=== PATIENT | male | born 1930 | race Caucasian/White ===

== ENCOUNTER 2017-01-22 20:26 | Inpatient (IN) | payer MEDICARE, OTHER ==
[2017-01-22] MEDS ORDERED: NORMAL SALINE 1000 ML 1,000 ML IV ONE (20:47)
[2017-01-22] MEDS ORDERED: LEVOFLOXACIN 750 MG/D5W RTU 150 ML IV ONE (20:48)
[2017-01-22] MEDS ORDERED: PIPERACILLIN/TAZOBACTAM 3.375 GM VIAL IV ONE (20:48)
[2017-01-22] MEDS ORDERED: VANCOMYCIN HCL INJ 1000 MG VIAL IV ONE (20:48)
--- NOTE | 2017-01-22 20:54 | ER Document Report ---
ED General - General Stated Complaint: ALTERED MENTAL STATUS Cannot obtain history due to: Dementia Notes: Patient presents from his nursing facility with altered mental status and hypoxemia. Patient is nonverbal, does not provide any history. Staff facility apparently stated that he was noted be hypoxemic on routine vitals and that he normally at least states his name. No additional history can be obtained secondary to patient's severe dementia and limited history from the nursing facility TRAVEL OUTSIDE OF THE [place] IN LAST 30 DAYS: No - Related Data Allergies/Adverse Reactions: No Known Allergies Allergy (Verified 10/15/16 14:10) Past Medical History - General Information source: Emergency Med Personnel Cannot obtain history due to: Dementia - Social History Smoking Status: Unknown if Ever Smoked Lives with: Intermediate Family History: Reviewed & Not Pertinent - Past Medical History Cardiac Medical History: Reports: Hx Hypercholesterolemia, Hx Hypertension Endocrine Medical History: Reports: Hx Diabetes Mellitus Type 1, Hx Diabetes Mellitus Type 2 Renal/ Medical History: Reports: Hx Benign Prostatic Hyperplasia Psychiatric Medical History: Reports: Hx Dementia Past Surgical History: Reports: Hx Orthopedic Surgery - right hip - Immunizations Hx Diphtheria, Pertussis, Tetanus Vaccination: No Review of Systems - Review of Systems -: Yes ROS unobtainable due to patient's medical condition Physical Exam - Vital signs Vitals: Resp Pulse Ox 26 H 97 01/22/17 20:50 01/22/17 20:50 Interpretation: Tachycardic, Hypoxic, Tachypneic Notes: PHYSICAL EXAMINATION: GENERAL: Cachectic, frail, ill-appearing elderly man HEAD: Atraumatic, normocephalic. EYES: Pupils equal round and reactive to light, sclera anicteric, conjunctiva are normal. ENT: nares patent, oropharynx clear without exudates. Dry mucous membranes. NECK: supple without lymphadenopathy LUNGS: Scattered rales in all lung bennett of the bilateral lungs. Mild tachypnea with respiratory rate 24. HEART: Regular tachycardia without murmurs ABDOMEN: Soft,, normoactive bowel sounds. No guarding, no rebound. No masses appreciated. EXTREMITIES: Pill roll tremor of the bilateral upper extremities. Patient is in the position and will not follow range of motion testing. No deformity of the extremities NEUROLOGICAL: Patient does move all extremities spontaneously. He does not follow commands PSYCH: Nonverbal SKIN: Warm, Dry, poor turgor, diffuse bruising over the bilateral upper extremities Course - Re-evaluation Re-evalutation: 01/22/17 20:54 Patient presents with hypoxemia and worsened altered mental status relative to his baseline. He is completely nonverbal at this point. He does protect his airway. Initial laboratories do show tachycardia with initial heart rate of 110. Patient is hypoxemic to as low as 83% on room air with a good Plath using a forehead pulse oximeter at time of my initial assessment. Patient does maintain oxygen saturations between 93 and 94% on 3.5 L by nasal cannula. Initial evaluation shows scattered rales in all lung bennett. Clinical history and evaluation at this time is most consistent with likely pneumonia, less likely CHF with pulmonary edema given the absence of significant hypertension or any evidence of volume overload on the remainder of exam. Indeed patient actually appears volume depleted from initial evaluation and has no known history of CHF. Labs, chest x-ray, begin antibiotics for a healthcare associated pneumonia and reassess 01/22/17 23:01 Chest x-ray is consistent with right lower lobe pneumonia which is clinically consistent with patient's presentation. He has become more alert although continues to be nonverbal after receiving oxygen supplementation. The remainder his laboratories are overall unremarkable. I discussed this case with the hospitalist secondary education professor Dr. Fleming who will admit. - Vital Signs Vital signs: Temp Pulse Resp BP Pulse Ox 19 170/84 H 100 01/22/17 22:02 01/22/17 22:02 01/22/17 22:02 - Laboratory Result Diagrams: 01/22/17 21:25 01/22/17 21:25 Laboratory results interpreted by me: 01/22/17 01/22/17 01/22/17 21:25 21:25 21:25 RBC 3.54 L Hgb 11.3 L Hct 33.4 L RDW 14.8 H Lymphocytes % 7.6 L Monocytes % 14.3 H VBG pH 7.47 H VBG pCO2 33.1 L Sodium 147.1 H Chloride 108 H BUN 33 H Total Protein 6.0 L Albumin 3.0 L - Diagnostic Test Radiology reviewed: Image reviewed, Reports reviewed Radiology results interpreted by me: 01/22/17 23:02 Chest x-ray: Right lower lobe pneumonia - EKG Interpretation by Me Additional EKG results interpreted by me: 01/22/17 23:[address] elevations or depressions. Qtc 422. Discharge - Discharge Clinical Impression: Right lower lobe pneumonia Qualifiers: Pneumonia type: due to unspecified organism Qualified Code(s): J18.1 - Lobar pneumonia, unspecified organism Sepsis Qualifiers: Sepsis type: sepsis due to unspecified organism Qualified Code(s): A41.9 - Sepsis, unspecified organism Condition: Fair Disposition: ADMITTED INPATIENT [facility] Admitted: Telemetry
[2017-01-22 21:39] LABS: ABSOLUTE LYMPHOCYTES (AUTO) 0.6 10^3/uL (0.5-4.7); ABSOLUTE MONOCYTES (AUTO) 1.1 10^3/uL (0.1-1.4); ABSOLUTE NEUT (AUTO) 6.1 10^3/uL (1.7-8.2); BASOPHILS % (AUTO) 0.2 % (0-2); HEMATOCRIT 33.4 % (37.9-51.0); HEMOGLOBIN 11.3 g/dL (13.5-17.0); HGB HCT DIFFERENCE 0.5; LYMPHOCYTES % (AUTO) 7.6 % (13-45); MEAN CORPUSCULAR HEMOGLOBIN 31.9 pg (27.0-33.4); MEAN CORPUSCULAR HGB CONC 33.8 g/dL (32.0-36.0); MEAN CORPUSCULAR VOLUME 94 fl (80-97); MONOCYTES % (AUTO) 14.3 % (3-13); RED BLOOD COUNT 3.54 10^6/uL (4.35-5.55); RED CELL DISTRIBUTION WIDTH 14.8 % (11.5-14.0); SEGMENTED NEUTROPHILS % (AUTO) 77.9 % (42-78); VENOUS BLOOD BASE EXCESS 0.4 mmol/L; VENOUS BLOOD HCO3 23.8 mmol/L (20-32); VENOUS BLOOD PCO2 33.1 mmHg (35-63); VENOUS BLOOD PH 7.47 (7.30-7.42); WHITE BLOOD COUNT 7.8 10^3/uL (4.0-10.5)
[2017-01-22 21:59] LABS: ALANINE AMINOTRANSFERASE 31 U/L (21-72); ALKALINE PHOSPHATASE 103 U/L (38-126); ANION GAP 15 (5-19); ASPARTATE AMINO TRANSFERASE 24 U/L (17-59); BILIRUBIN,DIRECT 0.3 mg/dL (0.0-0.4); BILIRUBIN,TOTAL 0.9 mg/dL (0.2-1.3); BLOOD UREA NITROGEN 33 mg/dL (7-20); CALCIUM 9.3 mg/dL (8.4-10.2); CARBON DIOXIDE 24 mmol/L (22-30); CHLORIDE 108 mmol/L (98-107); CREATININE RESULT 1.02 mg/dL (0.52-1.25); GLUCOSE 110 mg/dL (75-110); POTASSIUM 3.7 mmol/L (3.6-5.0); SODIUM 147.1 mmol/L (137-145)
[2017-01-23] MEDS ORDERED: GLUCAGON,HUMAN RECOMB 1 MG INJ IM PRN (02:11)
[2017-01-23] MEDS ORDERED: DEXTROSE 50%-WATER 25 GM/50 ML DISP.SYRIN IV PRN ×2 (02:11)
[2017-01-23] MEDS ORDERED: INSULIN LISPRO 100 UNIT/ML 3 ML VIAL SUBCUT PRN (02:11)
[2017-01-23] MEDS ORDERED: DEXTROSE 40% GEL 15 GM TUBE PO PRN ×2 (02:11)
[2017-01-23] MEDS ORDERED: IPRATROPIUM/ALBUTEROL 0.5-2.5 MG/3 ML AMPUL NEB PRN (02:13)
[2017-01-23] MEDS ORDERED: ACETAMINOPHEN 650 MG SUPP.RECT PR PRN ×2 (02:19→11:59)
[2017-01-23] MEDS ORDERED: VANCOMYCIN HCL 0 MG in DEXTROSE 5%-WATER 250 ML IV NR (02:30)
--- NOTE | 2017-01-23 02:33 | PDOC H&P ---
History of Present Illness Admission Date/PCP: 01/22/17 22:58 [place], [place] Patient complains of: ams History of Present Illness: ROCIO BENOIT is a 86 year old male resident of the [facility] in [place], [place], who presents to the emergency room for evaluation of above complaint. Patient has been discussed with emergency room physician who evaluated the patient. Patient is nonverbal, making only unintelligible sounds on occasion, not interacting in a purposeful way with his surroundings, and is able to provide no history whatsoever in terms of acute or chronic events, review of systems, personal habits, family history, etc. No friends or family are present. Old inpatient records are reviewed. ER physician notes have been reviewed, revealing Patient noted to be hypoxic at the assisted, and somewhat less interactive than usual. No further information available this point in time. Hospitalized on our service May 09 of May 22 of last year, with discharge diagnoses including right hip fracture, status post repair of same, hypertension , type II diabetes mellitus, Alzheimer's dementia, and benign prostatic hypertrophy. History and physical and discharge summary have been reviewed. . Laboratory results are listed in [employer] and are reviewed. X-ray summary results are listed below, with full report(s) reviewed. . EKG reviewed. And compared to a prior tracing from May 23 of last year Social history/personal habits: See history and present illness.No further information available this point in time. Allergies/adverse reactions NKDA. Home medications Home medications initially autopopulated into [employer] may not accurately reflect patient's true medications, dosages, and/or frequencies. Unfortunately, patient not able to provide any information related to medications/dosages/frequencies. REVIEW OF SYSTEMS: See history and present illness.No further information available this point in time. PHYSICAL EXAMINATION: Neither height nor weight are documented on the chart. Blood pressure 125/69. 95% saturation on 1 L oxygen per nasal cannula. Respirations are 22 and unlabored. Pulse 72 and regular. Temperature 97.8. Thin otherwise well-developed though somewhat chronically ill-appearing elderly male appearing approximately his stated age. He is awake, looking about the room slightly, but again, does not interact purposefully with his surroundings. Pulling at his restraints slightly. Skin is warm and dry. No grossly obvious evidence of rash in areas of skin examined. No subcutaneous nodules palpated. Small stage II decubiti on each lateral malleolus, along with a similar small stage II decubitus on the mid lateral aspect of his left foot. No evidence of infection at any site. Scattered small abrasions on his lower extremities, without obvious evidence of infection. ENT: Hearing can't be adequately evaluated due to his current status. No Holland sign. Eyes: No scleral icterus. Pupils equal and reactive to light at 3 mm. [place] conjunctivae. No raccoon eyes. Neck is nontender to gentle palpation. Midline trachea. No palpable thyroid nodule mass enlargement or tenderness. Lymphatic: No palpable cervical or clavicular nodes. Neck and lymphatic exams limited by patient body habitus. Psychiatric: Not able to be adequately evaluated due to his current status. Lungs: Auscultation reveals equal breath sounds bilaterally. No use of accessory respiratory muscles. Slightly coarse breath sounds in right base; clear otherwise. Cardiovascular: Heart regular rate and rhythm, without gallop murmur or rub. No carotid or abdominal aortic bruits. No ankle or pedal edema. Faintly palpable dorsalis pedis pulses. Abdomen: soft, nontender with positive bowel sounds. No upper abdominal mass or organomegaly is palpated.. Extremities: Feet are warm and dry. No calf tenderness to compression. No grossly obvious visual evidence of calf swelling. Gentle manipulation of lower extremities fails to reveal any obvious evidence of injury or instability to knees hips or ankles. Neurologic: Moves all 4 extremities grossly normally with some restriction of movement of his upper extremities due to soft wrist restraints.. Patellar reflexes absent. Absent Babinski. Light touch can't be determined due to his current status.. Past Medical History Cardiac Medical History: Reports: Hypertension Neurological Medical History: Reports: Other - Alzheimer's dementia. Endocrine Medical History: Reports: Diabetes Mellitus Type 2 Psychiatric Medical History: Reports: Dementia Past Surgical History Past Surgical History: Reports: Orthopedic Surgery - right hip Social History Information Source: Emergency Med Personnel, [facility] Records Lives with: Alf Smoking Status: Unknown if Ever Smoked Frequency of Alcohol Use: None Drugs: None - Advance Directive Resuscitation Status: Full Code Surrogate healthcare decision maker:: Uncertain at this point in time. Family History Family History: Reviewed & Not Pertinent Parental Family History Reviewed: No - patient not able to provide any information. Children Family History Reviewed: No - patient not able to provide any information. Sibling(s) Family History Reviewed.: No - patient not able to provide any information. Medication/Allergy Home Medications: Acetaminophen [Tylenol 325 mg Tablet] 325 mg PO Q4HP PRN 01/23/17 Alendronate Sodium [Fosamax] 70 mg PO MO@1000 01/23/17 Calcium Carbonate/Vitamin D3 [Oyster Shell Calcium-Vit D Tab] 1 each PO BID 04/05 Carbidopa/Levodopa [Sinemet Cr 50-200 Tablet] 1 tab PO BID 01/23/17 Docusate Sodium [Diocto] 10 ml PO BID 01/23/17 Finasteride [Proscar 5 mg Tablet] 5 mg PO DAILY 01/23/17 Iron Ps Cmplx/Vit B12/FA [Ferrex 150 Forte Capsule] 150 mg PO DAILY 01/23/17 Losartan Potassium [Cozaar 25 mg Tablet] 25 mg PO DAILY 01/23/17 Lovastatin [Altoprev] 20 mg PO QHS 01/23/17 Magnesium Hydroxide [Milk of Magnesia 30 ml Udcup] 30 ml PO DAILYP PRN 01/23/17 Risperidone [Risperdal 1 mg Tablet] 1 mg PO Q12 01/23/17 Tamsulosin HCl [Flomax 0.4 mg Cap.sr] 0.4 mg PO DAILY 01/23/17 Trazodone HCl [Desyrel 50 mg Tablet] 25 mg PO QHS 01/23/17 Acetaminophen [Tylenol 650 mg Supp] 650 mg ID Q4HP PRN supp.rect 01/27/17 Haloperidol [Haldol 5 mg Tablet] 5 mg PO Q6HP PRN #60 tablet 01/27/17 Allergies/Adverse Reactions: No Known Allergies Allergy (Verified 10/15/16 14:10) Physical Exam Vital Signs: Temp Pulse Resp BP Pulse Ox 18 129/68 H 99 01/23/17 00:01 01/23/17 00:01 01/23/17 00:01 Results Impressions: Chest X-Ray 01/22/17 20:37 IMPRESSION: Right basilar densities as noted above. Assessment & Plan - Diagnosis (1) Acute encephalopathy Is this a current diagnosis for this admission?: YesPlan: Likely secondary least in part to underlying pneumonia, along with possibly an element of dehydration. Hopefully will improve with time and treatment. (2) Decubitus ulcer of left ankle, stage 2 Is this a current diagnosis for this admission?: YesPlan: Innovative mattress. Turn every 2 hours. Dietary consult. (3) Decubitus ulcer of left foot, stage 2 Is this a current diagnosis for this admission?: Yes (4) Decubitus ulcer of right ankle, stage 2 Is this a current diagnosis for this admission?: Yes (5) Hypernatremia Is this a current diagnosis for this admission?: YesPlan: Likely due at least in part to an element of dehydration. Half-normal saline with potassium. Follow-up chemistry. (6) Right lower lobe pneumonia Qualifiers: Pneumonia type: due to unspecified organism Qualified Code(s): J18.1 - Lobar pneumonia, unspecified organism Is this a current diagnosis for this admission?: YesPlan: Patient will be admitted under COPD exacerbation pneumonia protocol. PRN DuoNeb 's. Antibiotics will consist of intravenous Zithromax, along with vancomycin, and Rocephin. Pharmacy to assist with dosing of vancomycin.. Patient is a full code. Knee high SCDs for DVT prophylaxis, along with subcutaneous heparin. Time spent in evaluation and management of patient: 51 minutes. (7) Diabetes mellitus Qualifiers: Diabetes mellitus type: type 2 Diabetes mellitus complication status: without complication Diabetes mellitus shelter insulin use: unspecified shelter insulin use status Qualified Code(s): E11.9 - Type 2 diabetes mellitus without complications Is this a current diagnosis for this admission?: YesPlan: Nothing by mouth at the present time. Swallow screen ordered. Accu-Cheks with appropriate sliding scale coverage. (8) Dementia Qualifiers: Dementia type: Alzheimer's disease Alzheimer's disease onset: unspecified onset Dementia behavioral disturbance: without behavioral disturbance Qualified Code(s): G30.9 - Alzheimer's disease, unspecified; F02.80 - Dementia in other diseases classified elsewhere without behavioral disturbance Is this a current diagnosis for this admission?: Yes - Inpatient Certification Based on my medical assessment, after consideration of the patient's comorbidities, presenting symptoms, or acuity I expect that the services needed warrant INPATIENT care.: Yes I certify that my determination is in accordance with my understanding of Medicare's requirements for reasonable and necessary INPATIENT services [42 CFR 412.3e].: Yes Medical Necessity: Significant Comorbidiites Make Outpatient Treatment Too Risky , Need Close Monitoring Due to Risk of Patient Decompensation, Need For IV Fluids, Need For Continuous Telemetry Monitoring, Need for Nebulizer Therapy and Monitoring of Response, Need for IV Antibiotics, Risk of Complication if Not Cared For in Hospital, Risk of Diagnosis Which Will Require Inpatient Eval/ Care/Monitoring Post Hospital Care: D/C or Transfer Summary
[2017-01-23 03:46] LABS: ADD ON TESTING BLD IN LAB ACKNOWLEDGE
[2017-01-23 04:05] LABS: MAGNESIUM 1.7 mg/dL (1.6-2.3)
[2017-01-23] MEDS: POTASSI CL 20 MEQ/1/2NS 1L 1,000 ML IV PRN ×2 (06:12→22:12)
[2017-01-23 07:14] LABS: MEAN CORPUSCULAR VOLUME 94 fl (80-97)
[2017-01-23 07:32] LABS: ABSOLUTE LYMPHOCYTES (AUTO) 0.6 10^3/uL (0.5-4.7); ABSOLUTE MONOCYTES (AUTO) 0.8 10^3/uL (0.1-1.4); ABSOLUTE NEUT (AUTO) 4.3 10^3/uL (1.7-8.2); BASOPHILS % (AUTO) 0.3 % (0-2); EOSINOPHILS % (AUTO) 0.2 % (0-6); HGB HCT DIFFERENCE 0.8; LYMPHOCYTES % (AUTO) 9.9 % (13-45); MEAN CORPUSCULAR HGB CONC 34.2 g/dL (32.0-36.0); MONOCYTES % (AUTO) 14.5 % (3-13); RED BLOOD COUNT 2.99 10^6/uL (4.35-5.55); RED CELL DISTRIBUTION WIDTH 14.9 % (11.5-14.0); SEGMENTED NEUTROPHILS % (AUTO) 75.1 % (42-78); WHITE BLOOD COUNT 5.7 10^3/uL (4.0-10.5)
[2017-01-23 07:33] LABS: HEMOGLOBIN 9.6 g/dL (13.5-17.0)
[2017-01-23 07:48] LABS: ANION GAP 10 (5-19); BLOOD UREA NITROGEN 29 mg/dL (7-20); CALCIUM 8.6 mg/dL (8.4-10.2); CARBON DIOXIDE 25 mmol/L (22-30); CHLORIDE 111 mmol/L (98-107); CREATININE RESULT 0.89 mg/dL (0.52-1.25); GLUCOSE 83 mg/dL (75-110); POTASSIUM 3.7 mmol/L (3.6-5.0); SODIUM 146.1 mmol/L (137-145)
[2017-01-23] MEDS: CEFTRIAXONE 1 GM/D5W RTU 50 ML IV SCH (10:04)
[2017-01-23] MEDS: HEPARIN SOD (PORCINE) 5,000 UNIT/ML 1 ML SYRINGE SUBCUT SCH ×2 (10:05→22:11)
[2017-01-23] MEDS: AZITHROMYCIN 500 MG in DEXTROSE 5%-WATER 250 ML IV SCH (10:56)
[2017-01-23] MEDS ORDERED: MAGNESIUM HYDROXIDE SUSP 30 ML UDCUP PO PRN (12:01)
--- NOTE | 2017-01-23 15:04 | PDOC PROGRESS REPORT ---
Subjective Progress Note for:: 01/23/17 Subjective:: Patient was seen in morning rounds. He is resting in bed under bear hugger. He was hypothermic overnight with a temperature 95.5. He is presently not answering any questions appropriately. He is picking at things in the air. Review systems is unobtainable due to patient's mentation. There is no family presently available in his room. Physical Exam Vital Signs: Temp Pulse Resp BP Pulse Ox 102.1 F H 95 22 H 138/72 H 94 01/23/17 13:00 01/23/17 13:00 01/23/17 13:00 01/23/17 13:00 01/23/17 13:00 Intake & Output 01/22/17 01/23/17 01/24/17 06:59 06:59 06:59 Intake Total 0 Balance 0 Weight 57.6 kg General appearance: PRESENT: no acute distress, thin, well-developed, well- nourished Head exam: PRESENT: atraumatic, normocephalic Eye exam: PRESENT: conjunctiva pink, EOMI, PERRLA. ABSENT: scleral icterus Ear exam: PRESENT: normal external ear exam Mouth exam: PRESENT: moist, tongue midline Neck exam: ABSENT: carotid bruit, JVD, lymphadenopathy, thyromegaly Respiratory exam: PRESENT: rhonchi, symmetrical, unlabored Cardiovascular exam: PRESENT: bradycardia, RRR Pulses: PRESENT: normal dorsalis pedis pul Vascular exam: PRESENT: normal capillary refill GI/Abdominal exam: PRESENT: normal bowel sounds, soft. ABSENT: distended, guarding, mass, organolmegaly, rebound, tenderness Rectal exam: PRESENT: deferred Extremities exam: PRESENT: full ROM. ABSENT: calf tenderness, clubbing, pedal edema Neurological exam: PRESENT: alert, altered, awake, CN II-XII grossly intact. ABSENT: motor sensory deficit Psychiatric exam: PRESENT: agitated Skin exam: PRESENT: dry, intact, warm. ABSENT: cyanosis, rash Results Laboratory Results: 01/23/17 07:00 01/23/17 07:00 01/23/17 01/23/17 07:00 07:00 WBC 5.7 RBC 2.99 L Hgb 9.6 L Hct 28.0 L MCV 94 MCH 32.0 MCHC 34.2 RDW 14.9 H Plt Count 216 Seg Neutrophils % 75.1 Lymphocytes % 9.9 L Monocytes % 14.5 H Eosinophils % 0.2 Basophils % 0.3 Absolute Neutrophils 4.3 Absolute Lymphocytes 0.6 Absolute Monocytes 0.8 Absolute Eosinophils 0.0 Absolute Basophils 0.0 Sodium 146.1 H Potassium 3.7 Chloride 111 H Carbon Dioxide 25 Anion Gap 10 BUN 29 H Creatinine 0.89 Est GFR ( Amer) > 60 Est GFR (Non-Af Amer) > 60 Glucose 83 Calcium 8.6 Impressions: Chest X-Ray 01/22/17 20:37 IMPRESSION: Right basilar densities as noted above. Assessment & Plan - Diagnosis (1) Right lower lobe pneumonia Qualifiers: Pneumonia type: due to unspecified organism Qualified Code(s): J18.1 - Lobar pneumonia, unspecified organism Is this a current diagnosis for this admission?: YesPlan: Patient's on IV broad-spectrum antibiotics and nebulizer treatments. Probable source of aspiration. Failed nursing bedside swallow. We will have speech therapy evaluate him. Attempts to contact his medical healthcare surrogate decision-maker stephane, Mr. Lancaster, he was not available present time. He has no advance directives according to the assisted care living center he lives in. (2) Acute encephalopathy Is this a current diagnosis for this admission?: YesPlan: Patient has baseline dementia according to long-term staff he does talk, and is ambulatory (3) Hypothermia Qualifiers: Encounter type: initial encounter Qualified Code(s): T68.XXXA - Hypothermia, initial encounter Is this a current diagnosis for this admission?: Yes (4) Diabetes mellitus Qualifiers: Diabetes mellitus type: type 2 Diabetes mellitus complication status: without complication Diabetes mellitus long-term insulin use: unspecified long-term insulin use status Qualified Code(s): E11.9 - Type 2 diabetes mellitus without complications Is this a current diagnosis for this admission?: YesPlan: Continue current meds and sliding scale coverage. (5) Dementia Qualifiers: Dementia type: Alzheimer's disease Alzheimer's disease onset: unspecified onset Dementia behavioral disturbance: without behavioral disturbance Qualified Code(s): G30.9 - Alzheimer's disease, unspecified; F02.80 - Dementia in other diseases classified elsewhere without behavioral disturbance Is this a current diagnosis for this admission?: YesPlan: [facility] long-term staff patient has dementia but is interactive unlike his present state. (6) Bradycardia Is this a current diagnosis for this admission?: YesPlan: Patient is not on any rate reducing medication will continue to monitor - Time Time Spent with patient: 25-34 minutes Critical Time spent with patient: 15-24 minutes Anticipated discharge: SNF
--- NOTE | 2017-01-23 15:42 | EKG REPORT ---
SEVERITY:- ABNORMAL ECG - SINUS RHYTHM FIRST DEGREE AV BLOCK LEFT ANTERIOR FASCICULAR BLOCK LOW VOLTAGE IN FRONTAL LEADS : Confirmed by: Maryellen Arshad MD 23-Jan-2017 15:41:41
[2017-01-23] MEDS ORDERED: DOCUSATE SODIUM PO SCH (18:00)
[2017-01-23] MEDS ORDERED: (PENDING PHARMACY ID) (Lovastatin [Altoprev] 20 MG) PO SCH (22:00)
[2017-01-23] MEDS: VANCOMYCIN HCL 1,000 MG in DEXTROSE 5%-WATER 250 ML IV SCH (22:11)
[2017-01-23] MEDS: ATORVASTATIN CALCIUM 10 MG TABLET PO SCH (22:12)
[2017-01-23] MEDS: RISPERIDONE 1 MG TABLET PO SCH (22:12)
[2017-01-23] MEDS: TRAZODONE HCL 50 MG TABLET PO SCH (22:25)
[2017-01-23] MEDS: CARBIDOPA/LEVODOPA ER 50-200 MG TABLET.SA PO SCH (22:25)
[2017-01-24] MEDS: RISPERIDONE 1 MG TABLET PO SCH ×2 (09:43→22:07)
[2017-01-24] MEDS: HEPARIN SOD (PORCINE) 5,000 UNIT/ML 1 ML SYRINGE SUBCUT SCH ×2 (09:43→22:07)
[2017-01-24] MEDS: LOSARTAN POTASSIUM 25 MG TABLET PO SCH (09:43)
[2017-01-24] MEDS: CARBIDOPA/LEVODOPA ER 50-200 MG TABLET.SA PO SCH ×2 (09:43→22:07)
[2017-01-24] MEDS: FINASTERIDE 5 MG TABLET PO SCH (09:44)
[2017-01-24] MEDS: DOCUSATE SODIUM 100 MG CAPSULE PO SCH (09:44)
[2017-01-24] MEDS: CEFTRIAXONE 1 GM/D5W RTU 50 ML IV SCH (09:45)
[2017-01-24] MEDS: AZITHROMYCIN 500 MG in DEXTROSE 5%-WATER 250 ML IV SCH (10:44)
--- NOTE | 2017-01-24 14:45 | PDOC PROGRESS REPORT ---
Subjective Progress Note for:: 01/24/17 Subjective:: Patient was seen in morning rounds. He is he is much more awake today than he was yesterday. He continues to have significant periods of confusion and agitation due to advanced dementia. Speech therapy did evaluate the patient morning for bedside swallow evaluation. He was able to swallow pured substances without aspiration. Review systems is unobtainable due to patient's mentation. There is no family presently available in his room. Physical Exam Vital Signs: Temp Pulse Resp BP Pulse Ox 94.7 F L 52 L 18 111/64 95 01/24/17 13:00 01/24/17 13:00 01/24/17 13:00 01/24/17 13:00 01/24/17 13:00 Intake & Output 01/23/17 01/24/17 01/25/17 06:59 06:59 06:59 Intake Total 0 1900 Balance 0 1900 Weight 57.6 kg 54.3 kg General appearance: PRESENT: no acute distress, thin, well-developed Head exam: PRESENT: atraumatic, normocephalic Eye exam: PRESENT: conjunctiva pink, EOMI, PERRLA. ABSENT: scleral icterus Ear exam: PRESENT: normal external ear exam Mouth exam: PRESENT: moist, tongue midline Respiratory exam: PRESENT: decreased breath sounds, rhonchi, symmetrical Cardiovascular exam: PRESENT: RRR. ABSENT: diastolic murmur, rubs, systolic murmur Pulses: PRESENT: normal dorsalis pedis pul Vascular exam: PRESENT: normal capillary refill GI/Abdominal exam: PRESENT: normal bowel sounds, soft. ABSENT: distended, guarding, mass, organolmegaly, rebound, tenderness Rectal exam: PRESENT: deferred Extremities exam: PRESENT: full ROM. ABSENT: calf tenderness, clubbing, pedal edema Neurological exam: PRESENT: alert, altered, CN II-XII grossly intact Psychiatric exam: PRESENT: agitated Focused psych exam: PRESENT: restlessness Skin exam: PRESENT: dry, intact, warm. ABSENT: cyanosis, rash Results Laboratory Results: 01/23/17 07:00 01/23/17 07:00 Impressions: Chest X-Ray 01/22/17 20:37 IMPRESSION: Right basilar densities as noted above. Assessment & Plan - Diagnosis (1) Right lower lobe pneumonia Qualifiers: Pneumonia type: due to unspecified organism Qualified Code(s): J18.1 - Lobar pneumonia, unspecified organism Is this a current diagnosis for this admission?: YesPlan: Patient's on IV broad-spectrum antibiotics and nebulizer treatments. Probable source of aspiration. Failed nursing bedside swallow. Speech therapy was able to work with him this morning and he was able tolerate pured diet. Did discuss goals of care with his stepson, Mr. Lancaster. He wishes patient to be a DO NOT RESUSCITATE. [facility]. He was agreeable to this option. He does not want the patient hospitalized again. He does understand he is at risk for continued aspiration pneumonias. (2) Acute encephalopathy Is this a current diagnosis for this admission?: YesPlan: Patient has baseline dementia according to prison staff he does talk, and is ambulatory. He is much more alert today but continues to be very confused. (3) Hypothermia Qualifiers: Encounter type: initial encounter Qualified Code(s): T68.XXXA - Hypothermia, initial encounter Is this a current diagnosis for this admission?: YesPlan: resolved (4) Diabetes mellitus Qualifiers: Diabetes mellitus type: type 2 Diabetes mellitus complication status: without complication Diabetes mellitus fdc insulin use: unspecified buttermaker helper insulin use status Qualified Code(s): E11.9 - Type 2 diabetes mellitus without complications Is this a current diagnosis for this admission?: YesPlan: Continue current meds and sliding scale coverage. (5) Dementia Qualifiers: Dementia type: Alzheimer's disease Alzheimer's disease onset: unspecified onset Dementia behavioral disturbance: without behavioral disturbance Qualified Code(s): G30.9 - Alzheimer's disease, unspecified; F02.80 - Dementia in other diseases classified elsewhere without behavioral disturbance Is this a current diagnosis for this admission?: YesPlan: Patient's had several years history of dementia itches been progressing according to nursing staff (6) Bradycardia Is this a current diagnosis for this admission?: YesPlan: Patient is not on any rate reducing medication will continue to monitor. Medical power of trial attorney does not want him to have pacemaker - Time Time Spent with patient: 25-34 minutes Critical Time spent with patient: 15-24 minutes Medications reviewed and adjusted accordingly: Yes Anticipated discharge: Hospice Within: within 48 hours
[2017-01-24] MEDS: VANCOMYCIN HCL 1,000 MG in DEXTROSE 5%-WATER 250 ML IV SCH (17:51)
[2017-01-24] MEDS: TAMSULOSIN HCL 0.4 MG CAP.SR.24H PO SCH (17:51)
[2017-01-24] MEDS: TRAZODONE HCL 50 MG TABLET PO SCH (22:07)
[2017-01-24] MEDS: ATORVASTATIN CALCIUM 10 MG TABLET PO SCH (22:07)
[2017-01-25 07:23] LABS: ABSOLUTE EOSINOPHILS # (AUTO) 0.1 10^3/uL (0.0-0.6); ABSOLUTE LYMPHOCYTES (AUTO) 0.8 10^3/uL (0.5-4.7); ABSOLUTE MONOCYTES (AUTO) 0.5 10^3/uL (0.1-1.4); ABSOLUTE NEUT (AUTO) 3.9 10^3/uL (1.7-8.2); BASOPHILS % (AUTO) 0.6 % (0-2); EOSINOPHILS % (AUTO) 1.5 % (0-6); HEMATOCRIT 33.3 % (37.9-51.0); HEMOGLOBIN 11.3 g/dL (13.5-17.0); HGB HCT DIFFERENCE 0.6; LYMPHOCYTES % (AUTO) 15.3 % (13-45); MEAN CORPUSCULAR HEMOGLOBIN 31.8 pg (27.0-33.4); MEAN CORPUSCULAR VOLUME 94 fl (80-97); MONOCYTES % (AUTO) 9.2 % (3-13); RED BLOOD COUNT 3.56 10^6/uL (4.35-5.55); RED CELL DISTRIBUTION WIDTH 14.5 % (11.5-14.0); SEGMENTED NEUTROPHILS % (AUTO) 73.4 % (42-78); WHITE BLOOD COUNT 5.3 10^3/uL (4.0-10.5)
[2017-01-25 07:41] LABS: ANION GAP 11 (5-19); BLOOD UREA NITROGEN 19 mg/dL (7-20); CALCIUM 8.6 mg/dL (8.4-10.2); CARBON DIOXIDE 21 mmol/L (22-30); CHLORIDE 109 mmol/L (98-107); CREATININE RESULT 0.64 mg/dL (0.52-1.25); GLUCOSE 120 mg/dL (75-110); POTASSIUM 4.1 mmol/L (3.6-5.0)
[2017-01-25] MEDS: POTASSI CL 20 MEQ/1/2NS 1L 1,000 ML IV PRN (08:17)
[2017-01-25] MEDS ORDERED: LORAZEPAM INJ 2 MG/1 ML VIAL IV PRN (09:38)
[2017-01-25] MEDS: CEFTRIAXONE 1 GM/D5W RTU 50 ML IV SCH (10:29)
[2017-01-25] MEDS: RISPERIDONE 1 MG TABLET PO SCH ×2 (10:31→22:40)
[2017-01-25] MEDS: HEPARIN SOD (PORCINE) 5,000 UNIT/ML 1 ML SYRINGE SUBCUT SCH ×2 (10:31→22:39)
[2017-01-25] MEDS: FINASTERIDE 5 MG TABLET PO SCH (10:31)
[2017-01-25] MEDS: CARBIDOPA/LEVODOPA ER 50-200 MG TABLET.SA PO SCH ×2 (10:32→22:40)
[2017-01-25] MEDS: LOSARTAN POTASSIUM 25 MG TABLET PO SCH (10:32)
[2017-01-25] MEDS: DOCUSATE SODIUM 100 MG CAPSULE PO SCH (10:34)
[2017-01-25] MEDS ORDERED: HALOPERIDOL LACTATE INJ 5 MG/1 ML VIAL IV ONE (11:00)
[2017-01-25] MEDS: AZITHROMYCIN 500 MG in DEXTROSE 5%-WATER 250 ML IV SCH (11:05)
--- NOTE | 2017-01-25 16:42 | PDOC PROGRESS REPORT ---
Subjective Progress Note for:: 01/25/17 Subjective:: Patient was seen in morning rounds. He is he is much more awake today than he was yesterday. He continues to have significant periods of confusion and agitation due to advanced dementia. Continues to be very agitated at times. He was able to swallow pured substances without aspiration. Review systems is unobtainable due to patient's mentation. There is no family presently available in his room. Physical Exam Vital Signs: Temp Pulse Resp BP Pulse Ox 97.1 F 48 L 22 H 122/68 96 01/25/17 04:10 01/25/17 16:03 01/25/17 16:03 01/25/17 16:03 01/25/17 16:03 Intake & Output 01/24/17 01/25/17 01/26/17 06:59 06:59 06:59 Intake Total 1900 2262 Balance 1900 2262 Weight 54.3 kg 54.2 kg General appearance: PRESENT: no acute distress, well-developed Head exam: PRESENT: atraumatic, normocephalic Eye exam: PRESENT: conjunctival injection Ear exam: PRESENT: normal external ear exam Mouth exam: PRESENT: moist, tongue midline Teeth exam: PRESENT: edentulous Neck exam: ABSENT: carotid bruit, JVD, lymphadenopathy, thyromegaly Respiratory exam: PRESENT: crackles, symmetrical, unlabored Cardiovascular exam: PRESENT: RRR. ABSENT: diastolic murmur, rubs, systolic murmur Pulses: PRESENT: normal dorsalis pedis pul Vascular exam: PRESENT: normal capillary refill GI/Abdominal exam: PRESENT: normal bowel sounds, soft. ABSENT: distended, guarding, mass, organolmegaly, rebound, tenderness Rectal exam: PRESENT: deferred Extremities exam: PRESENT: full ROM. ABSENT: calf tenderness, clubbing, pedal edema Neurological exam: PRESENT: alert, altered, CN II-XII grossly intact, other - agitated. ABSENT: motor sensory deficit Psychiatric exam: PRESENT: agitated Skin exam: PRESENT: dry, intact, warm. ABSENT: cyanosis, rash Results Laboratory Results: 01/25/17 06:53 01/25/17 06:53 01/25/17 01/25/17 06:53 06:53 WBC 5.3 RBC 3.56 L Hgb 11.3 L Hct 33.3 L MCV 94 MCH 31.8 MCHC 34.0 RDW 14.5 H Plt Count 204 Seg Neutrophils % 73.4 Lymphocytes % 15.3 Monocytes % 9.2 Eosinophils % 1.5 Basophils % 0.6 Absolute Neutrophils 3.9 Absolute Lymphocytes 0.8 Absolute Monocytes 0.5 Absolute Eosinophils 0.1 Absolute Basophils 0.0 Sodium 141.0 Potassium 4.1 Chloride 109 H Carbon Dioxide 21 L Anion Gap 11 BUN 19 Creatinine 0.64 Est GFR ( Amer) > 60 Est GFR (Non-Af Amer) > 60 Glucose 120 H Calcium 8.6 Impressions: Chest X-Ray 01/22/17 20:37 IMPRESSION: Right basilar densities as noted above. Assessment & Plan - Diagnosis (1) Right lower lobe pneumonia Qualifiers: Pneumonia type: due to unspecified organism Qualified Code(s): J18.1 - Lobar pneumonia, unspecified organism Is this a current diagnosis for this admission?: YesPlan: Patient's on IV broad-spectrum antibiotics and nebulizer treatments. Probable source of aspiration. Failed nursing bedside swallow. Speech therapy was able to work with him this morning and he was able tolerate pured diet. Did discuss goals of care with his stepson, Mr. Lancaster. He wishes patient to be a DO NOT RESUSCITATE. We discussed options of hospice at the intermediate facility. He was agreeable to this option. He does not want the patient hospitalized again. He does understand he is at risk for continued aspiration pneumonias. (2) Acute encephalopathy Is this a current diagnosis for this admission?: YesPlan: Patient has baseline dementia according to [facility] staff he does talk, and is ambulatory. He is much more alert today but continues to be very confused. (3) Hypothermia Qualifiers: Encounter type: initial encounter Qualified Code(s): T68.XXXA - Hypothermia, initial encounter Is this a current diagnosis for this admission?: YesPlan: resolved (4) Diabetes mellitus Qualifiers: Diabetes mellitus type: type 2 Diabetes mellitus complication status: without complication Diabetes mellitus assisted insulin use: unspecified terminal worker insulin use status Qualified Code(s): E11.9 - Type 2 diabetes mellitus without complications Is this a current diagnosis for this admission?: YesPlan: Continue current meds and sliding scale coverage. (5) Dementia Qualifiers: Dementia type: Alzheimer's disease Alzheimer's disease onset: unspecified onset Dementia behavioral disturbance: without behavioral disturbance Qualified Code(s): G30.9 - Alzheimer's disease, unspecified; F02.80 - Dementia in other diseases classified elsewhere without behavioral disturbance Is this a current diagnosis for this admission?: YesPlan: Patient's had several years history of dementia itches been progressing according to nursing staff (6) Bradycardia Is this a current diagnosis for this admission?: YesPlan: Patient is not on any rate reducing medication will continue to monitor. Medical power of labor employment associate does not want him to have pacemaker - Time Time Spent with patient: 25-34 minutes - zzxx Critical Time spent with patient: 15-24 minutes Medications reviewed and adjusted accordingly: Yes Anticipated discharge: Hospice Within: within 48 hours
[2017-01-25] MEDS: TAMSULOSIN HCL 0.4 MG CAP.SR.24H PO SCH (17:06)
[2017-01-25] MEDS: ATORVASTATIN CALCIUM 10 MG TABLET PO SCH (22:39)
[2017-01-25] MEDS: TRAZODONE HCL 50 MG TABLET PO SCH (22:40)
[2017-01-26] MEDS: HALOPERIDOL LACTATE INJ 5 MG/1 ML VIAL IV PRN (00:07)
[2017-01-26] MEDS: LOSARTAN POTASSIUM 25 MG TABLET PO SCH (09:07)
[2017-01-26] MEDS: FINASTERIDE 5 MG TABLET PO SCH (09:07)
[2017-01-26] MEDS: CEFTRIAXONE 1 GM/D5W RTU 50 ML IV SCH (09:08)
[2017-01-26] MEDS: DOCUSATE SODIUM 100 MG CAPSULE PO SCH (09:08)
[2017-01-26] MEDS: RISPERIDONE 1 MG TABLET PO SCH ×2 (09:08→21:24)
[2017-01-26] MEDS: CARBIDOPA/LEVODOPA ER 50-200 MG TABLET.SA PO SCH ×2 (09:08→21:24)
[2017-01-26] MEDS: HEPARIN SOD (PORCINE) 5,000 UNIT/ML 1 ML SYRINGE SUBCUT SCH ×2 (09:08→21:24)
[2017-01-26] MEDS: AZITHROMYCIN 500 MG in DEXTROSE 5%-WATER 250 ML IV SCH (10:46)
--- NOTE | 2017-01-26 12:17 | PDOC PROGRESS REPORT ---
Subjective Progress Note for:: 01/26/17 Subjective:: Patient was seen in morning rounds. He is presently awake and agitated. Nursing reports that Haldol did help him rest last night.. He continues to have significant periods of confusion and agitation due to advanced dementia. Continues to be very agitated at times. He was able to swallow pured substances without aspiration. Review systems is unobtainable due to patient's mentation. There is no family presently available in his room. Plan is for him to return to care home facility with hospice of [facility] following. Son asked that he no longer be hospitalized. Physical Exam Vital Signs: Temp Pulse Resp BP Pulse Ox 97.5 F 58 L 18 119/67 96 01/26/17 09:00 01/26/17 09:00 01/26/17 09:00 01/26/17 09:00 01/26/17 09:00 Intake & Output 01/25/17 01/26/17 01/27/17 06:59 06:59 06:59 Intake Total 2262 1214 300 Balance 2262 1214 300 Weight 54.2 kg Results Laboratory Results: 01/25/17 06:53 01/25/17 06:53 Impressions: Chest X-Ray 01/22/17 20:37 IMPRESSION: Right basilar densities as noted above. Assessment & Plan - Diagnosis (1) Right lower lobe pneumonia Qualifiers: Pneumonia type: due to unspecified organism Qualified Code(s): J18.1 - Lobar pneumonia, unspecified organism Is this a current diagnosis for this admission?: Yes (2) Acute encephalopathy Is this a current diagnosis for this admission?: YesPlan: Patient has baseline dementia according to care home staff he does talk, and is ambulatory. He is much more alert today but continues to be very confused. This appears to be his baseline over the last several years. (3) Hypothermia Qualifiers: Encounter type: initial encounter Qualified Code(s): T68.XXXA - Hypothermia, initial encounter Is this a current diagnosis for this admission?: YesPlan: resolved (4) Diabetes mellitus Qualifiers: Diabetes mellitus type: type 2 Diabetes mellitus complication status: without complication Diabetes mellitus watermaster insulin use: unspecified watermaster insulin use status Qualified Code(s): E11.9 - Type 2 diabetes mellitus without complications Is this a current diagnosis for this admission?: YesPlan: Continue current meds and sliding scale coverage. (5) Dementia Qualifiers: Dementia type: Alzheimer's disease Alzheimer's disease onset: unspecified onset Dementia behavioral disturbance: without behavioral disturbance Qualified Code(s): G30.9 - Alzheimer's disease, unspecified; F02.80 - Dementia in other diseases classified elsewhere without behavioral disturbance Is this a current diagnosis for this admission?: YesPlan: Patient's had several years history of dementia itches been progressing according to nursing staff (6) Bradycardia Is this a current diagnosis for this admission?: YesPlan: Patient is not on any rate reducing medication will continue to monitor. Medical power of banking attorney does not want him to have pacemaker (7) Goals of care, counseling/discussion Is this a current diagnosis for this admission?: YesPlan: Norman Lancaster, patient's stepson, is his medical power of banking attorney. We had a long discussion regarding his goals for patient care. He understands he has advanced dementia and this will only worsen over time. He knows the patient would not want aggressive measures done. We discussed options of palliative care and hospice care. Mr. Lancaster would like to proceed with hospice care and just keep his father comfortable for the remainder of his days. - Time Time Spent with patient: 25-34 minutes Critical Time spent with patient: 15-24 minutes Medications reviewed and adjusted accordingly: Yes Anticipated discharge: [facility] Within: within 24 hours
[2017-01-26] MEDS: TAMSULOSIN HCL 0.4 MG CAP.SR.24H PO SCH (17:36)
[2017-01-26] MEDS: ATORVASTATIN CALCIUM 10 MG TABLET PO SCH (21:24)
[2017-01-26] MEDS: TRAZODONE HCL 50 MG TABLET PO SCH (21:24)
[2017-01-27] MEDS: HALOPERIDOL LACTATE INJ 5 MG/1 ML VIAL IV PRN (04:11)
[2017-01-27] MEDS: CARBIDOPA/LEVODOPA ER 50-200 MG TABLET.SA PO SCH (11:21)
[2017-01-27] MEDS: CEFTRIAXONE 1 GM/D5W RTU 50 ML IV SCH (11:21)
[2017-01-27] MEDS: LOSARTAN POTASSIUM 25 MG TABLET PO SCH (11:22)
[2017-01-27] MEDS: FINASTERIDE 5 MG TABLET PO SCH (11:22)
[2017-01-27] MEDS: DOCUSATE SODIUM 100 MG CAPSULE PO SCH (11:22)
[2017-01-27] MEDS: HEPARIN SOD (PORCINE) 5,000 UNIT/ML 1 ML SYRINGE SUBCUT SCH (11:23)
[2017-01-27] MEDS: RISPERIDONE 1 MG TABLET PO SCH (11:23)
--- NOTE | 2017-01-27 11:36 | PDOC TRANSFER SUMMARY ---
General - Admit/Disc Date/PCP Admission Date/Primary Care Provider: 01/23/17 02:13 Discharge Date: 01/27/17 - Discharge Diagnosis (1) Right lower lobe pneumonia Is this a current diagnosis for this admission?: YesSummary: Treated with antibiotics. Most likely secondary to aspiration. Patient was evaluated by speech therapy he needs to have pured diet with thickened liquids. He still high-risk for aspiration (2) Acute encephalopathy Is this a current diagnosis for this admission?: YesSummary: Resolved back to his baseline dementia (3) Hypothermia Is this a current diagnosis for this admission?: YesSummary: Resolved (4) Diabetes mellitus Is this a current diagnosis for this admission?: YesSummary: Continue current meds (5) Dementia Is this a current diagnosis for this admission?: YesSummary: Severe advanced with agitation (6) Bradycardia Is this a current diagnosis for this admission?: YesSummary: Patient's comfort measures only (7) Goals of care, counseling/discussion Is this a current diagnosis for this admission?: YesSummary: Tan who is patient's power of transactional attorney has elected for hospice care in his [facility] facility [facility] will be following. - Additional Information Resuscitation Status: Comfort Measures Only Discharge Diet: Other (Comments) - Pureed thickened liquids Discharge Activity: Activity As Tolerated Home Medications: Acetaminophen [Tylenol 325 mg Tablet] 325 mg PO Q4HP PRN 01/23/17 Alendronate Sodium [Fosamax] 70 mg PO MO@1000 01/23/17 Calcium Carbonate/Vitamin D3 [Oyster Shell Calcium-Vit D Tab] 1 each PO BID 04/05 Carbidopa/Levodopa [Sinemet Cr 50-200 Tablet] 1 tab PO BID 01/23/17 Docusate Sodium [Diocto] 10 ml PO BID 01/23/17 Finasteride [Proscar 5 mg Tablet] 5 mg PO DAILY 01/23/17 Iron Ps Cmplx/Vit B12/FA [Ferrex 150 Forte Capsule] 150 mg PO DAILY 01/23/17 Losartan Potassium [Cozaar 25 mg Tablet] 25 mg PO DAILY 01/23/17 Lovastatin [Altoprev] 20 mg PO QHS 01/23/17 Magnesium Hydroxide [Milk of Magnesia 30 ml Udcup] 30 ml PO DAILYP PRN 01/23/17 Risperidone [Risperdal 1 mg Tablet] 1 mg PO Q12 01/23/17 Tamsulosin HCl [Flomax 0.4 mg Cap.sr] 0.4 mg PO DAILY 01/23/17 Trazodone HCl [Desyrel 50 mg Tablet] 25 mg PO QHS 01/23/17 Acetaminophen [Tylenol 650 mg Supp] 650 mg OH Q4HP PRN supp.rect 01/27/17 Haloperidol [Haldol 5 mg Tablet] 5 mg PO Q6HP PRN #60 tablet 01/27/17 History of Present Illness Admission Date/PCP: 01/23/17 02:13 Patient complains of: Altered mental status History of Present Illness: ROCIO BENOIT is a 86 year old male resident of the [facility] in [facility] who presents to the emergency room for evaluation of above complaint. Patient has been discussed with emergency room physician who evaluated the patient. Patient is nonverbal, monitoring only unintelligible sounds on occasion, not interacting in a purposeful way with his surroundings, and is able to provide no history whatsoever in terms of acute or chronic events, review of systems, personal habits, family history, etc. No friends or family are present. Old inpatient records are reviewed. ER physician notes have been reviewed, revealing Patient noted to be hypoxic at the correction, and somewhat less interactive.No further information available this point in time. Hospitalized on our service May 09 of May 22 of last year, with discharge diagnoses including right hip fracture, status post repair of same, hypertension , type II diabetes mellitus, Alzheimer's dementia, and benign prostatic hypertrophy. History and physical and discharge summary have been reviewed. . Hospital Course Hospital Course: Patient was referred to the hospitalist service for admission. He was admitted to telemetry floor. He was noted to be hypothermic with a rectal temperature of 95.5 bear hugger was placed overnight. He continued to be very obtunded initially. Following day he had temperature up to 102 was treated with IV broad -spectrum antibiotics after being pancultured. He failed bedside swallow evaluation by nursing. Speech therapy was consult for their input. His stepson was called regarding his goals for care. He wishes patient to be DO NOT RESUSCITATE and proceed with hospice care at the nursing facility. He does not want patient hospitalized any longer due to his multiple comorbid disease processes, dementia and his overall poor quality of life. Discharge planning was consulted. [facility] hospice was consulted spoke with his stepson in a chcf facility. Patient will return to his prior [facility] residence with [facility] following Physical Exam Vital Signs: Temp Pulse Resp BP Pulse Ox 97.6 F 66 18 169/88 H 95 01/26/17 16:00 01/27/17 08:00 01/27/17 08:00 01/27/17 08:00 01/27/17 08:00 Intake & Output 01/26/17 01/27/17 01/28/17 06:59 06:59 06:59 Intake Total 1214 700 Balance 1214 700 General appearance: PRESENT: no acute distress, thin, well-developed Head exam: PRESENT: atraumatic, normocephalic Eye exam: PRESENT: conjunctiva pink, EOMI, PERRLA. ABSENT: scleral icterus Ear exam: PRESENT: normal external ear exam Mouth exam: PRESENT: dry mucosa Neck exam: ABSENT: carotid bruit, JVD, lymphadenopathy, thyromegaly Respiratory exam: PRESENT: crackles - right base, decreased breath sounds, symmetrical, unlabored Cardiovascular exam: PRESENT: RRR. ABSENT: diastolic murmur, rubs, systolic murmur Pulses: PRESENT: normal carotid pulses, normal radial pulses Vascular exam: PRESENT: normal capillary refill GI/Abdominal exam: PRESENT: normal bowel sounds, soft. ABSENT: distended, guarding, mass, organolmegaly, rebound, tenderness Rectal exam: PRESENT: deferred Extremities exam: PRESENT: full ROM Musculoskeletal exam: PRESENT: full ROM Neurological exam: PRESENT: alert, altered, CN II-XII grossly intact Psychiatric exam: PRESENT: agitated, anxious Focused psych exam: PRESENT: restlessness Skin exam: PRESENT: abrasion, other - multiple bruising of both forearms Results Laboratory Results: 01/25/17 06:53 01/25/17 06:53 Impressions: Chest X-Ray 01/22/17 20:37 IMPRESSION: Right basilar densities as noted above. Transfer Plan - Disposition Transfer Plan: snf with [facility] following - Time Spent with Patient Time spent with patient: Less than 30 Minutes Qualifiers PATEINT BEING DISCHARGED WITH ANY OF THE FOLLOWING DIAGNOSIS?: No
[2017-01-27] MEDS: AZITHROMYCIN 500 MG in DEXTROSE 5%-WATER 250 ML IV SCH (12:28)
[2017-01-27 17:23] VITALS: BP 97/80
[2017-01-27] MEDS: TAMSULOSIN HCL 0.4 MG CAP.SR.24H PO SCH (18:38)
== END 2017-01-27 19:36 | disposition home health service (06) | DRG 177 ==
LOC: ER 20:26 → UNDOADMIN 22:58 → EH 22:58 → 4N 01-23 04:45
PROVIDERS: ADMIT Family Medicine; ATTEND Family Medicine
PROC: 3E0F73Z Introduction of Anti-inflammatory into Respiratory Tract, Via Natural or Artificial Opening (ICD-10-PCS; principal; 2017-01-23)
DX: J69.0 Pneumonitis due to inhalation of food and vomit (principal); G93.40 Encephalopathy, unspecified; E87.0 Hyperosmolality and hypernatremia; F02.81 Dementia in other diseases classified elsewhere, unspecified severity, with behavioral disturbance; Z78.1 Physical restraint status; Z66 Do not resuscitate; G30.9 Alzheimer's disease, unspecified; F02.80 Dementia in other diseases classified elsewhere, unspecified severity, without behavioral disturbance, psychotic disturbance, mood disturbance, and anxiety; N40.0 Benign prostatic hyperplasia without lower urinary tract symptoms; I10 Essential (primary) hypertension; L89.522 Pressure ulcer of left ankle, stage 2; L89.512 Pressure ulcer of right ankle, stage 2; L89.892 Pressure ulcer of other site, stage 2; L97.529 Non-pressure chronic ulcer of other part of left foot with unspecified severity; E86.0 Dehydration; R68.0 Hypothermia, not associated with low environmental temperature; R00.1 Bradycardia, unspecified; Z79.899 Other long term (current) drug therapy; Z79.4 Long term (current) use of insulin; Z87.81 Personal history of (healed) traumatic fracture; R09.02 Hypoxemia; S80.812A Abrasion, left lower leg, initial encounter; S80.811A Abrasion, right lower leg, initial encounter; X58.XXXA Exposure to other specified factors, initial encounter
CPT/HCPCS: 36415; 71010; 80048; 80053; 82803; 82962; 83605; 83735; 84443; 85025; 87040; 93005; 93010; 99285; G8996-GN; G8997-GN; G8998-GN; J0456; J0696; J1630; J1644; J1956; J2543; J3370; J3480; J3490; J7030; J7060